=== PATIENT | male | born 1970 | race Caucasian/White ===

== ENCOUNTER 2020-11-30 11:20 | Observation (INO) ==
[2020-11-30] MEDS ORDERED: Aspirin 325 MG TABLET PO ONE (11:32)
[2020-11-30 11:44] LABS: Basophils # 0.1 K/mcL (0.0-0.2); Basophils % 1.1 %; Eosinophils # 0.4 K/mcL (0.0-0.6); Eosinophils % 3.7 %; Hematocrit 45.5 % (37.5-50.1); Hemoglobin 14.6 g/dL (12.9-16.9); Immature Granulocytes % 0.6 % (0-4); Lymphocytes # 2.4 K/mcL (0.6-4.6); Lymphocytes % 25.8 %; Mean Corpuscular HGB Conc 32.1 g/dL (31.6-35.5); Mean Corpuscular Hemoglobin 24.8 pg (28.0-33.3); Mean Corpuscular Volume 77.4 fL (83.0-100.0); Mean Platelet Volume 8.9 fL (9.4-12.4); Monocytes # 0.9 K/mcL (0.0-1.3); Monocytes % 9.4 %; Neutrophils # 5.6 K/mcL (1.6-8.9); Platelet Count 392 K/mcL (140-400); Red Blood Count 5.88 M/mcL (4.19-5.50); Red Cell Distribution Width 17.2 % (11.5-14.5); Segmented Neutrophils % 59.4 %; White Blood Count 9.4 K/mcL (4.3-11.1)
[2020-11-30 12:33] LABS: BUN/Creatinine Ratio 13 (6-26); Blood Urea Nitrogen 10 mg/dL (6-20); Calcium 10.1 mg/dL (8.6-10.3); Carbon Dioxide 22 mEq/L (23-29); Chloride 97 mEq/L (98-107); Glucose 213 mg/dL (70-105); Osmolality,Calculated 281 (280-300); Potassium 3.8 mEq/L (3.5-5.1); Sodium 133 mEq/L (136-145); eGFR For African Americans > 60 (> 60); eGFR For Non-African Americans > 60 (> 60)
[2020-11-30 12:40] LABS: Troponin I < 0.03 ng/mL (< 0.04)
[2020-11-30] MEDS ORDERED: D5% in Water 1,000 ML IVC PRN (13:30)
[2020-11-30] MEDS ORDERED: Dextrose Gel 15 GM/37.5 ML TUBE PO PRN ×2 (13:30)
[2020-11-30] MEDS ORDERED: *HR* Dextrose 50 % in Water (Vial) 50 ML VIAL IVP PRN (13:30)
[2020-11-30] MEDS ORDERED: Perflutren Lipid Microsphere 1.3 ML in 0.9 % Sodium Chloride 8.7 ML IVP PRN (13:31)
[2020-11-30] MEDS ORDERED: Naloxone 0.4 MG/ML INJ IVP PRN (13:36)
[2020-11-30] MEDS ORDERED: Ondansetron 4 MG/2 ML VIAL IVP PRN (13:36)
[2020-11-30] MEDS ORDERED: Nitroglycerin 0.4 MG TAB.SUBL SL PRN (13:46)
[2020-11-30] MEDS ORDERED: Morphine Sulfate 2 MG/ML SYRINGE IVP ONE (13:47)
[2020-11-30] MEDS: Famotidine 20 MG TABLET PO SCH ×2 (14:25→20:42)
[2020-11-30 14:39] LABS: Adenovirus Not Detected (Not Detect); Bordetella Pertussis Not Detected (Not Detect); Chlamydophila pneumoniae Not Detected (Not Detect); Coronavirus 229E Not Detected (Not Detect); Coronavirus HKU1 Not Detected (Not Detect); Coronavirus NL63 Not Detected (Not Detect); Coronavirus OC43 Not Detected (Not Detect); Human Metapneumovirus Not Detected (Not Detect); Human Rhinovirus/Enterovirus Not Detected (Not Detect); Influenza A Subtype 2009 H1 Not Detected (Not Detect); Influenza B Not Detected (Not Detect); Mycoplasma pneumoniae Not Detected (Not Detect); Parainfluenza Virus 1 Not Detected (Not Detect); Parainfluenza Virus 2 Not Detected (Not Detect); Parainfluenza Virus 3 Not Detected (Not Detect); Parainfluenza Virus 4 Not Detected (Not Detect); Respiratory Syncytial Virus Not Detected (Not Detect); SARS-CoV-2 Not Detected (Not Detect)
[2020-11-30 15:53] LABS: Bilirubin,Urine Negative (Negative); Blood,Urine Negative (Negative); Clarity,Urine Clear (Clear); Color,Urine Colorless (Yellow); Glucose,Urine (UA) 200 mg/dL (Normal); Ketones,Urine Negative (Negative); Leukocyte Esterase,Urine Negative (Negative); Nitrite,Urine Negative (Negative); PH,Urine 6.5 pH Units (5.0-8.0); Protein,Urine Negative (Neg-Trace); RBC,Urine 0-3 per hpf (0-3); Specific Gravity,Urine 1.008 (1.010-1.025); Urobilinogen,Urine Normal (Normal); WBC,Urine 0-3 per hpf (0-3)
[2020-11-30] MEDS: GlipiZIDE 5 MG TABLET PO SCH (17:37)
[2020-11-30] MEDS: Insulin LISPRO 300 UNITS/3 ML VIAL SUBQ SCH (17:37)
[2020-11-30] MEDS: Budesonide/Formoterol 160/4.5 1 PUFF INH IH SCH (19:51)
[2020-11-30] MEDS: lisinopriL 10 MG TABLET PO SCH (20:42)
[2020-11-30] MEDS: *HR* Heparin 5,000 UNIT/ML VIAL SQ SCH (20:42)
[2020-11-30] MEDS ORDERED: Insulin LISPRO 300 UNITS/3 ML VIAL SUBQ SCH (21:00)
[2020-12-01 01:08] LABS: Hematocrit 44.4 % (37.5-50.1); Hemoglobin 13.8 g/dL (12.9-16.9); Mean Corpuscular HGB Conc 31.1 g/dL (31.6-35.5); Mean Corpuscular Hemoglobin 24.7 pg (28.0-33.3); Mean Corpuscular Volume 79.6 fL (83.0-100.0); Mean Platelet Volume 9.1 fL (9.4-12.4); Platelet Count 345 K/mcL (140-400); Red Blood Count 5.58 M/mcL (4.19-5.50); Red Cell Distribution Width 16.7 % (11.5-14.5)
[2020-12-01 01:19] LABS: Activated Partial Thrombo Time 23.7 Seconds (26.0-36.0)
[2020-12-01 01:58] LABS: BUN/Creatinine Ratio 13 (6-26); Blood Urea Nitrogen 11 mg/dL (6-20); Calcium 9.2 mg/dL (8.6-10.3); Carbon Dioxide 24 mEq/L (23-29); Chloride 98 mEq/L (98-107); Cholesterol 155 mg/dL (< 200); Glucose 181 mg/dL (70-105); HDL Cholesterol 31 mg/dL (40-59); LDL Cholesterol,Calculated 84 mg/dL (< 100); Magnesium 1.9 mg/dL (1.6-2.6); Osmolality,Calculated 280 (280-300); Potassium 3.7 mEq/L (3.5-5.1); Sodium 133 mEq/L (136-145); Triglycerides 200 mg/dL (< 150); eGFR For African Americans > 60 (> 60); eGFR For Non-African Americans > 60 (> 60)
[2020-12-01] MEDS: *HR* Heparin 5,000 UNIT/ML VIAL SQ SCH (05:06)
[2020-12-01] MEDS: Budesonide/Formoterol 160/4.5 1 PUFF INH IH SCH (07:23)
[2020-12-01] MEDS ORDERED: Tiotropium 10 INH DOSE IH ONE (07:24)
[2020-12-01 08:23] VITALS: BP 115/76
[2020-12-01] MEDS: Regadenoson 0.4 MG/5 ML SYRINGE IVP ONE ×2 (08:47→12:21)
[2020-12-01] MEDS ORDERED: Loratadine 10 MG TABLET PO SCH (09:00)
[2020-12-01] MEDS ORDERED: Fenofibrate 54 MG TABLET PO SCH (09:00)
[2020-12-01] MEDS ORDERED: hydroCHLOROthiazide 25 MG TABLET PO SCH (09:00)
[2020-12-01] MEDS ORDERED: Aspirin Enteric Coated 81 MG Tablet PO SCH (09:00)
[2020-12-01] MEDS ORDERED: Tiotropium 10 INH DOSE IH SCH (10:00)
[2020-12-01 11:53] LABS: Estimated Average Glucose 272 mg/dl; Hemoglobin A1C 11.1 %
[2020-12-01] MEDS: Insulin LISPRO 300 UNITS/3 ML VIAL SUBQ SCH ×2 (12:20→12:55)
[2020-12-01] MEDS: GlipiZIDE 5 MG TABLET PO SCH (12:51)
[2020-12-01] MEDS: lisinopriL 10 MG TABLET PO SCH (12:51)
[2020-12-01] MEDS: Famotidine 20 MG TABLET PO SCH (12:51)
== END 2020-12-01 14:24 | disposition left against medical advice (07) ==
LOC: EMEROOARM 11:20 → 3BNU 11:20 → SUATTDRO 13:14 → 3BNU 14:01
PROVIDERS: ADMIT Internal Medicine; ATTEND Nurse Practitioner

== ENCOUNTER 2021-12-18 11:52 | Inpatient (IN) ==
[2021-12-18] MEDS ORDERED: Aspirin 81 MG TAB.CHEW PO ONE (12:00)
[2021-12-18] MEDS ORDERED: Nitroglycerin 0.4 MG TAB.SUBL SL SCH (12:15)
[2021-12-18 12:26] LABS: Basophils # 0.1 K/mcL (0.0-0.2); Eosinophils # 0.2 K/mcL (0.0-0.6); Eosinophils % 2.3 %; Hematocrit 39.5 % (37.5-50.1); Hemoglobin 11.6 g/dL (12.9-16.9); Immature Granulocytes % 0.7 % (0-4); Lymphocytes # 1.6 K/mcL (0.6-4.6); Lymphocytes % 19.9 %; Mean Corpuscular HGB Conc 29.4 g/dL (31.6-35.5); Mean Corpuscular Hemoglobin 20.6 pg (28.0-33.3); Mean Corpuscular Volume 70.3 fL (83.0-100.0); Mean Platelet Volume 9.3 fL (9.4-12.4); Monocytes # 0.8 K/mcL (0.0-1.3); Monocytes % 10.3 %; Neutrophils # 5.4 K/mcL (1.6-8.9); Platelet Count 453 K/mcL (140-400); Red Blood Count 5.62 M/mcL (4.19-5.50); Red Cell Distribution Width 21.4 % (11.5-14.5); Segmented Neutrophils % 65.8 %; White Blood Count 8.1 K/mcL (4.3-11.1)
[2021-12-18 12:33] LABS: INR 1.1
[2021-12-18 12:48] LABS: BUN/Creatinine Ratio 11 (6-26); Blood Urea Nitrogen 9 mg/dL (6-20); Calcium 9.2 mg/dL (8.6-10.3); Carbon Dioxide 23 mEq/L (23-29); Chloride 97 mEq/L (98-107); Glucose 260 mg/dL (70-105); Osmolality,Calculated 280 (280-300); Potassium 4.2 mEq/L (3.5-5.1); Sodium 131 mEq/L (136-145); eGFR For African Americans > 60 (> 60); eGFR For Non-African Americans > 60 (> 60)
[2021-12-18 12:56] LABS: Troponin I 0.64 ng/mL (< 0.04)
[2021-12-18] MEDS ORDERED: *HR* Heparin 5,000 UNIT/ML VIAL IVP PRN (12:57)
[2021-12-18] MEDS ORDERED: *HR* Heparin 5,000 UNIT/ML VIAL IVP ONE (12:57)
[2021-12-18 13:04] LABS: Heparin anti-factor XA UFH < 0.04 IU/mL (0.30-0.70)
[2021-12-18] MEDS ORDERED: Furosemide 40 MG/4 ML VIAL IVP ONE (13:04)
[2021-12-18] MEDS: Heparin 25,000UNIT/250ML 1/2NS 25,000 UNIT/250 ML IV.SOLN IVC SCH (13:28)
[2021-12-18] MEDS ORDERED: Naloxone 0.4 MG/ML INJ IVP PRN (13:40)
[2021-12-18] MEDS ORDERED: Ondansetron 4 MG/2 ML VIAL IVP PRN (13:40)
[2021-12-18] MEDS ORDERED: Dextrose 4 GM Chewable Tablets PO PRN ×2 (13:42)
[2021-12-18] MEDS ORDERED: D5% in Water 1,000 ML IVC PRN (13:42)
[2021-12-18] MEDS ORDERED: Perflutren Lipid Microsphere 1.3 ML in 0.9 % Sodium Chloride 8.7 ML IVP PRN (13:42)
[2021-12-18] MEDS ORDERED: *HR* Dextrose 50 % in Water (Syg) 50 ML SYRINGE IVP PRN (13:42)
[2021-12-18] MEDS ORDERED: Nitroglycerin 0.4 MG PATCH.TD24 TD SCH (15:00)
[2021-12-18] MEDS: Metoprolol XL (24 HR) Succ 50 MG TAB.ER.24H PO SCH (15:14)
[2021-12-18] MEDS ORDERED: Acetaminophen 325 MG TABLET PO PRN (17:10)
[2021-12-18] MEDS: Insulin LISPRO 300 UNITS/3 ML VIAL SUBQ SCH (17:11)
[2021-12-18] MEDS: Furosemide 20 MG/2 ML VIAL IVP SCH (17:13)
[2021-12-18] MEDS: Insulin DETEMIR 100 UNIT/ML X5UNITS SUBQ SCH (21:06)
[2021-12-18] MEDS ORDERED: *HR* Metoprolol 5 MG/5 ML VIAL IVP ONE (22:59)
[2021-12-18] MEDS ORDERED: Nicotine 21 MG PATCH.TD24 TD SCH (23:15)
[2021-12-19 03:01] LABS: Basophils # 0.1 K/mcL (0.0-0.2); Basophils % 0.8 %; Eosinophils # 0.3 K/mcL (0.0-0.6); Eosinophils % 2.3 %; Hematocrit 38.2 % (37.5-50.1); Hemoglobin 11.3 g/dL (12.9-16.9); Immature Granulocytes % 0.5 % (0-4); Lymphocytes # 2.5 K/mcL (0.6-4.6); Lymphocytes % 22.4 %; Mean Corpuscular HGB Conc 29.6 g/dL (31.6-35.5); Mean Corpuscular Hemoglobin 20.5 pg (28.0-33.3); Mean Corpuscular Volume 69.3 fL (83.0-100.0); Mean Platelet Volume 9.1 fL (9.4-12.4); Monocytes # 0.8 K/mcL (0.0-1.3); Monocytes % 7.5 %; Neutrophils # 7.3 K/mcL (1.6-8.9); Platelet Count 420 K/mcL (140-400); Red Blood Count 5.51 M/mcL (4.19-5.50); Red Cell Distribution Width 20.8 % (11.5-14.5); Segmented Neutrophils % 66.5 %
[2021-12-19 03:16] LABS: BUN/Creatinine Ratio 15 (6-26); Blood Urea Nitrogen 11 mg/dL (6-20); Calcium 8.8 mg/dL (8.6-10.3); Carbon Dioxide 23 mEq/L (23-29); Chloride 98 mEq/L (98-107); Glucose 218 mg/dL (70-105); Magnesium 2.1 mg/dL (1.6-2.6); Osmolality,Calculated 278 (280-300); Potassium 3.9 mEq/L (3.5-5.1); Sodium 131 mEq/L (136-145); eGFR For African Americans > 60 (> 60); eGFR For Non-African Americans > 60 (> 60)
[2021-12-19] MEDS: *HR* Heparin 5,000 UNIT/ML VIAL IVP PRN ×2 (03:30→10:16)
[2021-12-19] MEDS ORDERED: Tiotropium 10 INH DOSE IH ONE (07:27)
[2021-12-19] MEDS: Furosemide 20 MG/2 ML VIAL IVP SCH ×3 (07:42→20:00)
[2021-12-19] MEDS: Metoprolol XL (24 HR) Succ 50 MG TAB.ER.24H PO SCH (07:43)
[2021-12-19] MEDS: Insulin LISPRO 300 UNITS/3 ML VIAL SUBQ SCH ×3 (07:49→19:59)
[2021-12-19] MEDS: Heparin 25,000UNIT/250ML 1/2NS 25,000 UNIT/250 ML IV.SOLN IVC SCH (08:21)
[2021-12-19] MEDS ORDERED: Aspirin 81 MG TAB.CHEW PO SCH (09:00)
[2021-12-19] MEDS ORDERED: lisinopriL 10 MG TABLET PO SCH (09:00)
[2021-12-19] MEDS ORDERED: Fluconazole 100 MG TABLET PO SCH (09:00)
[2021-12-19] MEDS ORDERED: Loratadine 10 MG TABLET PO SCH (09:00)
[2021-12-19] MEDS ORDERED: Tiotropium 10 INH DOSE IH SCH (10:00)
[2021-12-19] MEDS ORDERED: Furosemide 40 MG/4 ML VIAL IVP ONE (11:58)
[2021-12-19] MEDS ORDERED: 0.9 % Sodium Chloride 250 ML IVC ONE (13:34)
[2021-12-19 14:33] VITALS: TEMP 98.2
[2021-12-19] MEDS ORDERED: 0.9 % Sodium Chloride 2,000 ML ONE (15:07)
[2021-12-19] MEDS ORDERED: Heparin 1,000 UNITS/500 mL 500 ML ONE ×2 (15:08→17:06)
[2021-12-19] MEDS ORDERED: ISOVUE-370 200 ML INFUS..BTL ONE ×3 (15:08→17:53)
[2021-12-19] MEDS ORDERED: Nitroglycerin 1,000 MCG/5 ML VIAL IV ONE ×2 (15:08→16:05)
[2021-12-19] MEDS ORDERED: *HR* Heparin 10,000 UNIT/10 ML VIAL ONE ×4 (15:08→18:30)
[2021-12-19 15:09] LABS: ABG Base Excess -1 mEq/L (-2 to 3); ABG HCO3 22 mEq/L (21-27); ABG Oxygen Saturation 94 % (95-98); ABG PCO2 31 mmHg (35-45); ABG PH 7.46 pH Units (7.32-7.45); ABG PO2 64 mmHg (85-104); ABG TCO2 23 mEq/L (20-26)
[2021-12-19] MEDS ORDERED: Naloxone 0.4 MG/ML INJ IVP PRN (15:11)
[2021-12-19] MEDS ORDERED: *HR* FentaNYL (PF) 100 MCG/2 ML VIAL ONE (15:52)
[2021-12-19] MEDS ORDERED: *HR* Midazolam HCl 2 MG/2 ML VIAL ONE (15:52)
[2021-12-19] MEDS ORDERED: Albumin 25% 25gram/100mL 25 GM/100 ML IV.SOLN IVPB SCH (16:00)
[2021-12-19] MEDS ORDERED: Furosemide 40 MG/4 ML VIAL ONE (16:34)
[2021-12-19] MEDS ORDERED: Tirofiban 12.5 MG/250ML 12.5 MG/250 ML BAG ONE (16:39)
[2021-12-19] MEDS ORDERED: niCARdipine 20 MG/200 ML MLS IVC ONE (16:55)
[2021-12-19] MEDS ORDERED: D5% in Water 250 ML ONE (17:00)
[2021-12-19] MEDS ORDERED: D5% in Water 1,000 ML IVC ONE (17:02)
[2021-12-19] MEDS ORDERED: Morphine Sulfate 2 MG/ML SYRINGE ONE (17:10)
[2021-12-19] MEDS ORDERED: WATER IVC SCH (18:15)
[2021-12-19] MEDS ORDERED: D5 IVC SCH (18:15)
[2021-12-19] MEDS ORDERED: HEPARIN IVC SCH (18:15)
[2021-12-19] MEDS ORDERED: Heparin 25,000UNIT/250ML 1/2NS 25,000 UNIT/250 ML IV.SOLN IVC SCH (18:15)
[2021-12-19] MEDS ORDERED: 0.9 % Sodium Chloride 1,000 ML ONE ×2 (18:51→21:13)
[2021-12-19 19:01] LABS: ABG Base Excess -2 mEq/L (-2 to 3); ABG HCO3 22 mEq/L (21-27); ABG Oxygen Saturation 90 % (95-98); ABG PCO2 33 mmHg (35-45); ABG PH 7.43 pH Units (7.32-7.45); ABG PO2 56 mmHg (85-104); ABG TCO2 23 mEq/L (20-26)
[2021-12-19] MEDS ORDERED: *HR* LORazepam 2 MG/ML VIAL IVP ONE (19:38)
[2021-12-19 19:45] LABS: Mixed Venous Blood pCO2 41 mmHg (44-46); Mixed Venous Blood pH 7.39 pH Units (7.34-7.36); Mixed Venous Blood pO2 28 mmHg (35-45)
[2021-12-19 20:00] LABS: INR 1.2
[2021-12-19] MEDS ORDERED: Phenylephrine 20 MG in 0.9 % Sodium Chloride 250 ML IVC SCH (20:15)
[2021-12-19 20:16] LABS: Activated Partial Thrombo Time 155.6 Seconds (26.0-36.0)
[2021-12-19] MEDS: Insulin DETEMIR 100 UNIT/ML X5UNITS SUBQ SCH (20:22)
[2021-12-19 21:03] VITALS: BP 102/75; PULSE 116; O2SAT 90
[2021-12-19] MEDS ORDERED: Budesonide/Formoterol 160/4.5 1 PUFF INH IH SCH (22:00)
[2021-12-19] MEDS ORDERED: Metoprolol XL (24 HR) Succ 25 MG TAB.ER.24H PO ONE (22:57)
== END 2021-12-19 21:27 | disposition short-term general hospital (02) | DRG 178 ==
LOC: EMEROOARM 11:52 → 3NENU 11:52 → SUATTDRO 13:40 → 3NENU 14:18 → ICNU 12-19 14:20
PROVIDERS: ADMIT Internal Medicine; ATTEND Internal Medicine

== ENCOUNTER 2022-02-27 15:22 | Inpatient (IN) ==
[2022-02-27 15:57] LABS: Basophils # 0.1 K/mcL (0.0-0.2); Basophils % 0.7 %; Eosinophils # 0.2 K/mcL (0.0-0.6); Eosinophils % 2.7 %; Hematocrit 30.3 % (37.5-50.1); Hemoglobin 9.3 g/dL (12.9-16.9); Immature Granulocytes % 0.4 % (0-4); Lymphocytes # 1.4 K/mcL (0.6-4.6); Lymphocytes % 18.9 %; Mean Corpuscular HGB Conc 30.7 g/dL (31.6-35.5); Mean Corpuscular Hemoglobin 26.3 pg (28.0-33.3); Mean Corpuscular Volume 85.6 fL (83.0-100.0); Mean Platelet Volume 8.4 fL (9.4-12.4); Monocytes # 0.7 K/mcL (0.0-1.3); Monocytes % 8.7 %; Neutrophils # 5.1 K/mcL (1.6-8.9); Platelet Count 540 K/mcL (140-400); Red Blood Count 3.54 M/mcL (4.19-5.50); Red Cell Distribution Width 18.5 % (11.5-14.5); Segmented Neutrophils % 68.6 %; White Blood Count 7.5 K/mcL (4.3-11.1)
[2022-02-27] MEDS ORDERED: Furosemide 240 MG in 0.9 % Sodium Chloride 96 ML IVC SCH (16:15)
[2022-02-27 16:22] LABS: BUN/Creatinine Ratio 12 (6-26); Blood Urea Nitrogen 13 mg/dL (6-20); Calcium 9.1 mg/dL (8.6-10.3); Carbon Dioxide 24 mEq/L (23-29); Chloride 99 mEq/L (98-107); Glucose 131 mg/dL (70-105); Osmolality,Calculated 280 (280-300); Potassium 3.4 mEq/L (3.5-5.1); Sodium 134 mEq/L (136-145); eGFR For African Americans > 60 (> 60); eGFR For Non-African Americans > 60 (> 60)
[2022-02-27] MEDS ORDERED: Perflutren Lipid Microsphere 1.3 ML in 0.9 % Sodium Chloride 8.7 ML IVP PRN (16:22)
[2022-02-27 16:23] LABS: Troponin I 0.03 ng/mL (< 0.04)
[2022-02-27] MEDS ORDERED: Norepinephrine 4 MG/254 ML IV.SOLN IVC SCH (16:30)
[2022-02-27] MEDS ORDERED: Vancomycin 2,000 MG/520 ML IV.SOLN IVPB ONE (16:47)
[2022-02-27] MEDS ORDERED: Cefepime HCl 2,000 MG in 0.9 % Sodium Chloride Mini Bag 100 ML IVPB ONE (16:47)
[2022-02-27 17:19] LABS: Adenovirus Not Detected (Not Detect); Bordetella Pertussis Not Detected (Not Detect); Chlamydophila pneumoniae Not Detected (Not Detect); Coronavirus 229E Not Detected (Not Detect); Coronavirus HKU1 Not Detected (Not Detect); Coronavirus NL63 Not Detected (Not Detect); Coronavirus OC43 Not Detected (Not Detect); Human Metapneumovirus Not Detected (Not Detect); Human Rhinovirus/Enterovirus Not Detected (Not Detect); Influenza A Subtype 2009 H1 Not Detected (Not Detect); Influenza B Not Detected (Not Detect); Mycoplasma pneumoniae Not Detected (Not Detect); Parainfluenza Virus 1 Not Detected (Not Detect); Parainfluenza Virus 2 Not Detected (Not Detect); Parainfluenza Virus 3 Not Detected (Not Detect); Parainfluenza Virus 4 Not Detected (Not Detect); Respiratory Syncytial Virus Not Detected (Not Detect); SARS-CoV-2 Not Detected (Not Detect)
[2022-02-27] MEDS ORDERED: *HR* Dextrose 50 % in Water (Syg) 50 ML SYRINGE IVP PRN (17:43)
[2022-02-27] MEDS ORDERED: Potassium Chloride Elixir 20 MEQ/15 ML UDC PO ONE (17:43)
[2022-02-27] MEDS ORDERED: Ondansetron 4 MG/2 ML VIAL IVP PRN (17:43)
[2022-02-27] MEDS ORDERED: D5% in Water 1,000 ML IVC PRN (17:43)
[2022-02-27] MEDS ORDERED: Dextrose Gel 15 GM/37.5 ML TUBE PO PRN ×2 (17:43)
[2022-02-27] MEDS ORDERED: Naloxone 0.4 MG/ML INJ IVP PRN (17:43)
[2022-02-27] MEDS ORDERED: Acetaminophen 325 MG TABLET PO PRN (17:43)
[2022-02-27] MEDS ORDERED: Nitroglycerin 0.4 MG TAB.SUBL SL PRN (17:47)
[2022-02-27] MEDS: *HR* Ticagrelor 90 MG TABLET PO SCH (21:17)
[2022-02-27] MEDS: Insulin DETEMIR 100 UNIT/ML X5UNITS SUBQ SCH (21:18)
[2022-02-27] MEDS: Budesonide/Formoterol 80/4.5 1 PUFF INH IH SCH (21:20)
[2022-02-28 01:43] LABS: Basophils # 0.1 K/mcL (0.0-0.2); Basophils % 0.9 %; Eosinophils # 0.2 K/mcL (0.0-0.6); Eosinophils % 2.6 %; Hematocrit 29.3 % (37.5-50.1); Hemoglobin 8.9 g/dL (12.9-16.9); Immature Granulocytes % 0.4 % (0-4); Lymphocytes # 1.6 K/mcL (0.6-4.6); Lymphocytes % 16.9 %; Mean Corpuscular HGB Conc 30.4 g/dL (31.6-35.5); Mean Corpuscular Hemoglobin 25.9 pg (28.0-33.3); Mean Corpuscular Volume 85.2 fL (83.0-100.0); Mean Platelet Volume 8.5 fL (9.4-12.4); Monocytes # 0.6 K/mcL (0.0-1.3); Monocytes % 6.9 %; Neutrophils # 6.6 K/mcL (1.6-8.9); Platelet Count 531 K/mcL (140-400); Red Blood Count 3.44 M/mcL (4.19-5.50); Red Cell Distribution Width 18.3 % (11.5-14.5); Segmented Neutrophils % 72.3 %; White Blood Count 9.2 K/mcL (4.3-11.1)
[2022-02-28 02:00] LABS: BUN/Creatinine Ratio 13 (6-26); Blood Urea Nitrogen 13 mg/dL (6-20); Calcium 8.7 mg/dL (8.6-10.3); Carbon Dioxide 23 mEq/L (23-29); Chloride 99 mEq/L (98-107); Glucose 140 mg/dL (70-105); Magnesium 1.8 mg/dL (1.6-2.6); Osmolality,Calculated 276 (280-300); Phosphorous 4.7 mg/dL (2.7-4.5); Potassium 3.3 mEq/L (3.5-5.1); Sodium 132 mEq/L (136-145); eGFR For African Americans > 60 (> 60); eGFR For Non-African Americans > 60 (> 60)
[2022-02-28 02:07] LABS: Troponin I 0.04 ng/mL (< 0.04)
[2022-02-28] MEDS ORDERED: Tiotropium 10 INH DOSE IH ONE (08:09)
[2022-02-28] MEDS ORDERED: Levalbuterol Neb 1.25 MG/3 ML ONE (08:18)
[2022-02-28] MEDS: Tiotropium 10 INH DOSE IH SCH (08:20)
[2022-02-28] MEDS: Budesonide/Formoterol 80/4.5 1 PUFF INH IH SCH ×2 (08:20→22:50)
[2022-02-28] MEDS: Levalbuterol Neb 1.25 MG/3 ML IH SCH ×3 (08:24→22:50)
[2022-02-28] MEDS: Insulin LISPRO 300 UNITS/3 ML VIAL SUBQ SCH ×3 (09:24→17:00)
[2022-02-28] MEDS: Metoprolol XL (24 HR) Succ 25 MG TAB.ER.24H PO SCH (09:25)
[2022-02-28] MEDS: *HR* Ticagrelor 90 MG TABLET PO SCH ×2 (09:25→20:48)
[2022-02-28] MEDS: Aspirin 81 MG TAB.CHEW PO SCH (09:26)
[2022-02-28] MEDS: Insulin DETEMIR 100 UNIT/ML X5UNITS SUBQ SCH ×2 (09:58→20:53)
[2022-02-28] MEDS ORDERED: Amiodarone Premix 150 MG/100 ML BAG IVPB ONE (10:30)
[2022-02-28] MEDS ORDERED: Amiodarone Premix 360 MG/200 ML BAG IVC ONE (10:50)
[2022-02-28 11:55] LABS: ABG Base Excess 0 mEq/L (-2 to 3); ABG HCO3 25 mEq/L (21-27); ABG Oxygen Saturation 99 % (95-98); ABG PCO2 38 mmHg (35-45); ABG PH 7.42 pH Units (7.32-7.45); ABG PO2 116 mmHg (85-104); ABG TCO2 26 mEq/L (20-26)
[2022-02-28] MEDS ORDERED: Albuterol 2.5 MG/3 ML NEBULIZER IH PRN (13:30)
[2022-02-28] MEDS ORDERED: Spironolactone 25 MG TABLET PO SCH (13:30)
[2022-02-28] MEDS: Spironolactone 25 MG TABLET PO SCH (14:45)
[2022-02-28] MEDS ORDERED: Bumetanide 1 MG/4 ML VIAL IVP ONE (16:27)
[2022-02-28] MEDS: Amiodarone Premix 360 MG/200 ML BAG IVC SCH (18:22)
[2022-02-28] MEDS: Sacubitril/Valsartan 24/26 MG 1 TABLET PO SCH (21:05)
[2022-03-01] MEDS: Levalbuterol Neb 1.25 MG/3 ML IH SCH ×4 (03:41→21:40)
[2022-03-01 05:15] LABS: Basophils # 0.1 K/mcL (0.0-0.2); Basophils % 0.9 %; Eosinophils # 0.3 K/mcL (0.0-0.6); Eosinophils % 2.7 %; Hematocrit 30.6 % (37.5-50.1); Hemoglobin 9.4 g/dL (12.9-16.9); Immature Granulocytes % 0.5 % (0-4); Lymphocytes # 1.3 K/mcL (0.6-4.6); Lymphocytes % 13.5 %; Mean Corpuscular HGB Conc 30.7 g/dL (31.6-35.5); Mean Corpuscular Hemoglobin 25.9 pg (28.0-33.3); Mean Corpuscular Volume 84.3 fL (83.0-100.0); Mean Platelet Volume 8.6 fL (9.4-12.4); Monocytes # 0.6 K/mcL (0.0-1.3); Monocytes % 6.6 %; Neutrophils # 7.1 K/mcL (1.6-8.9); Platelet Count 531 K/mcL (140-400); Red Blood Count 3.63 M/mcL (4.19-5.50); Red Cell Distribution Width 18.2 % (11.5-14.5); Segmented Neutrophils % 75.8 %; White Blood Count 9.3 K/mcL (4.3-11.1)
[2022-03-01 05:23] LABS: BUN/Creatinine Ratio 15 (6-26); Blood Urea Nitrogen 14 mg/dL (6-20); Calcium 9.1 mg/dL (8.6-10.3); Carbon Dioxide 23 mEq/L (23-29); Chloride 97 mEq/L (98-107); Glucose 170 mg/dL (70-105); Magnesium 1.8 mg/dL (1.6-2.6); Osmolality,Calculated 274 (280-300); Phosphorous 4.2 mg/dL (2.7-4.5); Potassium 3.5 mEq/L (3.5-5.1); Sodium 130 mEq/L (136-145); eGFR For African Americans > 60 (> 60); eGFR For Non-African Americans > 60 (> 60)
[2022-03-01] MEDS: Amiodarone Premix 360 MG/200 ML BAG IVC SCH (05:28)
[2022-03-01] MEDS: Tiotropium 10 INH DOSE IH SCH (07:30)
[2022-03-01] MEDS: Budesonide/Formoterol 80/4.5 1 PUFF INH IH SCH (07:31)
[2022-03-01] MEDS: Insulin LISPRO 300 UNITS/3 ML VIAL SUBQ SCH ×3 (08:33→17:12)
[2022-03-01] MEDS: Insulin DETEMIR 100 UNIT/ML X5UNITS SUBQ SCH ×2 (08:38→20:17)
[2022-03-01] MEDS: Metoprolol XL (24 HR) Succ 25 MG TAB.ER.24H PO SCH (08:39)
[2022-03-01] MEDS: Aspirin 81 MG TAB.CHEW PO SCH (08:39)
[2022-03-01] MEDS: *HR* Ticagrelor 90 MG TABLET PO SCH ×2 (08:39→20:17)
[2022-03-01] MEDS: Spironolactone 25 MG TABLET PO SCH (08:40)
[2022-03-01] MEDS: polyethylene glycoL 3350 17 GM POWD.PACK PO SCH (09:32)
[2022-03-01] MEDS ORDERED: Morphine Sulfate 2 MG/ML SYRINGE IVP ONE ×2 (09:57→10:15)
[2022-03-01] MEDS ORDERED: *HR* LORazepam 2 MG/ML VIAL IVP ONE ×2 (09:57→09:59)
[2022-03-01] MEDS ORDERED: Morphine Sulfate 2 MG/ML SYRINGE ONE ×2 (09:58→09:59)
[2022-03-01] MEDS ORDERED: *HR* Water for inj. (sterile) Vial 10 ML IV ONE (09:59)
[2022-03-01] MEDS ORDERED: *HR* Metoprolol 5 MG/5 ML VIAL IVP ONE ×2 (09:59→10:03)
[2022-03-01] MEDS ORDERED: Nitroglycerin 1 INCH/GM PACKET ONE (10:02)
[2022-03-01] MEDS ORDERED: Nitroglycerin 1 INCH/GM PACKET TP ONE (10:15)
[2022-03-01] MEDS ORDERED: Furosemide 240 MG in 0.9 % Sodium Chloride 96 ML IVC SCH (10:30)
[2022-03-01] MEDS ORDERED: Furosemide 40 MG/4 ML VIAL IVP ONE (10:41)
[2022-03-01 10:43] LABS: ABG Base Excess -3 mEq/L (-2 to 3); ABG HCO3 25 mEq/L (21-27); ABG Oxygen Saturation 100 % (95-98); ABG PCO2 56 mmHg (35-45); ABG PH 7.25 pH Units (7.32-7.45); ABG PO2 207 mmHg (85-104); ABG TCO2 26 mEq/L (20-26)
[2022-03-01 10:53] LABS: Hematocrit 32.3 % (37.5-50.1); Hemoglobin 9.8 g/dL (12.9-16.9); Mean Corpuscular HGB Conc 30.3 g/dL (31.6-35.5); Mean Corpuscular Hemoglobin 26.1 pg (28.0-33.3); Mean Corpuscular Volume 86.1 fL (83.0-100.0); Mean Platelet Volume 8.4 fL (9.4-12.4); Platelet Count 525 K/mcL (140-400); Red Blood Count 3.75 M/mcL (4.19-5.50); Red Cell Distribution Width 18.4 % (11.5-14.5)
[2022-03-01 11:00] LABS: INR 1.2
[2022-03-01] MEDS: Dexmedetomidine HCl 400 MCG/100 ML MLS IVC SCH ×2 (11:01→20:17)
[2022-03-01] MEDS: DOBUTamine 1,000 MG/250 ML BAG IVC SCH (11:05)
[2022-03-01 11:16] LABS: Alanine Aminotransferase 11 Units/L (7-52); Albumin 4.1 g/dL (3.5-5.7); Albumin/Globulin Ratio 1.1 (1.1-2.2); Alkaline Phosphatase 132 Units/L (34-104); Aspartate Amino Transferase 9 Units/L (13-39); BUN/Creatinine Ratio 16 (6-26); Bilirubin,Total 0.4 mg/dL (0.3-1.0); Blood Urea Nitrogen 15 mg/dL (6-20); Calcium 9.3 mg/dL (8.6-10.3); Carbon Dioxide 24 mEq/L (23-29); Chloride 95 mEq/L (98-107); Globulin 3.6 g/dL (2.4-3.5); Glucose 299 mg/dL (70-105); Osmolality,Calculated 278 (280-300); Potassium 4.3 mEq/L (3.5-5.1); Sodium 128 mEq/L (136-145); Total Protein 7.7 g/dL (6.4-8.9); Troponin I 0.03 ng/mL (< 0.04); eGFR For African Americans > 60 (> 60); eGFR For Non-African Americans > 60 (> 60)
[2022-03-01] MEDS: BUMETANIDE IVC SCH (11:52)
[2022-03-01] MEDS: Sacubitril/Valsartan 24/26 MG 1 TABLET PO SCH ×2 (11:52→20:17)
[2022-03-01] MEDS: Doxycycline 100 MG in 0.9 % Sodium Chloride Mini Bag 100 ML IVPB SCH ×2 (12:06→20:18)
[2022-03-01] MEDS: cefTRIAXone 1,000 MG in 0.9 % Sodium Chloride 10 ML IVP SCH (12:06)
[2022-03-01] MEDS ORDERED: 0.9 % Sodium Chloride 1,000 ML ONE (13:22)
[2022-03-01 14:01] LABS: ABG Base Excess 0 mEq/L (-2 to 3); ABG HCO3 25 mEq/L (21-27); ABG Oxygen Saturation 97 % (95-98); ABG PCO2 42 mmHg (35-45); ABG PH 7.38 pH Units (7.32-7.45); ABG PO2 96 mmHg (85-104); ABG TCO2 27 mEq/L (20-26)
[2022-03-01] MEDS: Ipratropium/Albuterol Neb 3 ML IH SCH ×3 (15:36→23:10)
[2022-03-01 18:47] LABS: BUN/Creatinine Ratio 16 (6-26); Blood Urea Nitrogen 14 mg/dL (6-20); Calcium 11.2 mg/dL (8.6-10.3); Carbon Dioxide 27 mEq/L (23-29); Chloride 97 mEq/L (98-107); Glucose 127 mg/dL (70-105); Magnesium 1.8 mg/dL (1.6-2.6); Osmolality,Calculated 276 (280-300); Potassium 3.3 mEq/L (3.5-5.1); Sodium 132 mEq/L (136-145); eGFR For African Americans > 60 (> 60); eGFR For Non-African Americans > 60 (> 60)
[2022-03-01] MEDS ORDERED: Potassium Chloride 40 MEQ/200 ML BAG IVPB PRN (20:57)
[2022-03-02] MEDS: Insulin LISPRO 300 UNITS/3 ML VIAL SUBQ SCH ×2 (00:14→05:32)
[2022-03-02] MEDS: Ipratropium/Albuterol Neb 3 ML IH SCH ×2 (03:32→07:24)
[2022-03-02] MEDS: Levalbuterol Neb 1.25 MG/3 ML IH SCH ×2 (03:33→07:24)
[2022-03-02 04:06] LABS: Basophils % 0.3 %; Eosinophils # 0.1 K/mcL (0.0-0.6); Eosinophils % 1.7 %; Immature Granulocytes % 0.5 % (0-4); Lymphocytes # 0.8 K/mcL (0.6-4.6); Lymphocytes % 12.8 %; Mean Corpuscular Hemoglobin 26.4 pg (28.0-33.3); Mean Corpuscular Volume 85.4 fL (83.0-100.0); Mean Platelet Volume 8.4 fL (9.4-12.4); Monocytes # 0.5 K/mcL (0.0-1.3); Monocytes % 7.1 %; Platelet Count 324 K/mcL (140-400); Red Blood Count 2.46 M/mcL (4.19-5.50); Segmented Neutrophils % 77.6 %; White Blood Count 6.5 K/mcL (4.3-11.1)
[2022-03-02 04:08] LABS: Hemoglobin 6.5 g/dL (12.9-16.9)
[2022-03-02 04:24] LABS: BUN/Creatinine Ratio 15 (6-26); Blood Urea Nitrogen 14 mg/dL (6-20); Calcium 8.4 mg/dL (8.6-10.3); Carbon Dioxide 25 mEq/L (23-29); Chloride 97 mEq/L (98-107); Glucose 130 mg/dL (70-105); Magnesium 2.1 mg/dL (1.6-2.6); Osmolality,Calculated 274 (280-300); Phosphorous 4.7 mg/dL (2.7-4.5); Potassium 3.1 mEq/L (3.5-5.1); Sodium 131 mEq/L (136-145); eGFR For African Americans > 60 (> 60); eGFR For Non-African Americans > 60 (> 60)
[2022-03-02 04:27] LABS: ABG Base Excess 0 mEq/L (-2 to 3); ABG HCO3 25 mEq/L (21-27); ABG Oxygen Saturation 98 % (95-98); ABG PCO2 39 mmHg (35-45); ABG PH 7.41 pH Units (7.32-7.45); ABG PO2 105 mmHg (85-104); ABG TCO2 26 mEq/L (20-26)
[2022-03-02 05:20] LABS: Hematocrit 25.9 % (37.5-50.1)
[2022-03-02] MEDS: BUMETANIDE IVC SCH (05:51)
[2022-03-02] MEDS ORDERED: Albumin 25% 25gram/100mL 25 GM/100 ML IV.SOLN IVPB ONE (06:20)
[2022-03-02] MEDS: Tiotropium 10 INH DOSE IH SCH (07:23)
[2022-03-02 07:49] VITALS: TEMP 96.8
[2022-03-02] MEDS: Dexmedetomidine HCl 400 MCG/100 ML MLS IVC SCH (08:30)
[2022-03-02] MEDS: DOBUTamine 1,000 MG/250 ML BAG IVC SCH (08:30)
[2022-03-02] MEDS ORDERED: CefTRIAXone 1,000 MG VIAL ONE (09:03)
[2022-03-02 09:12] VITALS: BP 103/89; PULSE 102; O2SAT 98
[2022-03-02] MEDS: *HR* Ticagrelor 90 MG TABLET PO SCH (09:12)
[2022-03-02] MEDS: Aspirin 81 MG TAB.CHEW PO SCH (09:12)
[2022-03-02] MEDS: Sacubitril/Valsartan 24/26 MG 1 TABLET PO SCH (09:12)
[2022-03-02] MEDS: Spironolactone 25 MG TABLET PO SCH (09:12)
[2022-03-02] MEDS: Doxycycline 100 MG in 0.9 % Sodium Chloride Mini Bag 100 ML IVPB SCH (09:18)
[2022-03-02] MEDS: cefTRIAXone 1,000 MG in 0.9 % Sodium Chloride 10 ML IVP SCH (09:29)
[2022-03-02] MEDS: polyethylene glycoL 3350 17 GM POWD.PACK PO SCH (09:29)
[2022-03-02] MEDS: Metoprolol XL (24 HR) Succ 25 MG TAB.ER.24H PO SCH (09:30)
== END 2022-03-02 10:00 | disposition short-term general hospital (02) | DRG 194 ==
LOC: EMEROOARM 15:22 → 2NNU 15:22 → ICNU 03-01 11:39
PROVIDERS: ADMIT Student in an Organized Health Care Education/Training Program; ATTEND Student in an Organized Health Care Education/Training Program